=== PATIENT | female | born 1965 | race Caucasian/White ===

== ENCOUNTER 2016-08-15 12:21 | Day surgery (SDC) | payer OTHER ==
[~2016-08-15] VITALS: Ht 177.8 cm; Wt 93.9 kg
[~2016-08-15 12:21] MED LIST: 24 HOUR ALLER15.8 ML BOTH NARES; ESTRACE2 MG PO; LIPITOR80 MG PO; PHENTERMINE HCL30 MG PO; TYLENOL EXTRA500 MG PO; VITAMIN C500 M1 PO; ZYRTEC10 M2 PO
[2016-08-15] MEDS ORDERED: TYLENOL SINUS1 EA16 PO (12:53)
== END 2016-08-15 14:01 | disposition home or self-care (01) ==
LOC: PAIN 12:21 → SDC 15:00 → PAIN 15:00
DX: M47.26 Other spondylosis with radiculopathy, lumbar region (principal); M48.06 Spinal stenosis, lumbar region; E78.00 Pure hypercholesterolemia, unspecified; R73.03 Prediabetes; Z87.891 Personal history of nicotine dependence; E66.9 Obesity, unspecified; Z68.29 Body mass index [BMI] 29.0-29.9, adult
CPT/HCPCS: J1030; J2250; J3010; S0020

== ENCOUNTER 2016-08-22 13:36 | Day surgery (SDC) | payer OTHER ==
[~2016-08-22] VITALS: Ht 177.8 cm; Wt 93.9 kg
[~2016-08-22 13:36] MED LIST changes: +TYLENOL SINUS1 EA16 PO
== END 2016-08-22 14:52 | disposition home or self-care (01) ==
LOC: PAIN 13:36 → SDC 15:00
DX: M47.26 Other spondylosis with radiculopathy, lumbar region (principal); M48.06 Spinal stenosis, lumbar region; M25.552 Pain in left hip; M25.551 Pain in right hip; R73.03 Prediabetes; Z87.891 Personal history of nicotine dependence; E66.3 Overweight; Z68.29 Body mass index [BMI] 29.0-29.9, adult
CPT/HCPCS: J1030; J2250; J3010; S0020

== ENCOUNTER 2016-11-09 13:35 | Day surgery (SDC) | payer OTHER ==
[~2016-11-09] VITALS: Ht 177.8 cm; Wt 93.9 kg
[~2016-11-09 13:35] MED LIST changes: +ARTHRITIS PAIN650 M5 PO; -TYLENOL EXTRA500 MG PO; +ZETIA10 MG PO
== END 2016-11-09 14:52 | disposition home or self-care (01) ==
LOC: PAIN 13:35 → SDC 14:30 → PAIN 14:30
PROC: 015B3ZZ Destruction of Lumbar Nerve, Percutaneous Approach (ICD-10-PCS; principal; 2016-11-09)
DX: M47.27 Other spondylosis with radiculopathy, lumbosacral region (principal); G89.29 Other chronic pain; M25.551 Pain in right hip; M25.552 Pain in left hip; E78.4 Other hyperlipidemia; R73.03 Prediabetes; Z87.891 Personal history of nicotine dependence; E66.3 Overweight; Z68.27 Body mass index [BMI] 27.0-27.9, adult; M48.061 Spinal stenosis, lumbar region without neurogenic claudication
CPT/HCPCS: J1030; J2250; J3010; S0020

== ENCOUNTER 2016-11-16 13:05 | Day surgery (SDC) | payer OTHER ==
[~2016-11-16] VITALS: Ht 177.8 cm; Wt 93.9 kg
== END 2016-11-16 14:30 | disposition home or self-care (01) ==
LOC: PAIN 13:05 → SDC 14:15 → PAIN 14:15
DX: M47.26 Other spondylosis with radiculopathy, lumbar region (principal); M48.061 Spinal stenosis, lumbar region without neurogenic claudication; M54.5 Low back pain; G89.29 Other chronic pain; M25.551 Pain in right hip; E78.4 Other hyperlipidemia; R73.03 Prediabetes; E66.3 Overweight; Z68.29 Body mass index [BMI] 29.0-29.9, adult; Z87.891 Personal history of nicotine dependence; Z79.891 Long term (current) use of opiate analgesic
CPT/HCPCS: J1030; J2250; J3010; S0020

== ENCOUNTER 2017-08-14 07:12 | Day surgery (SDC) | payer OTHER ==
[~2017-08-14] VITALS: Ht 177.8 cm; Wt 88.0 kg
[~2017-08-14 07:12] MED LIST changes: +MULTIPLE VITAM1 EACH PO; +PHENTERMINE H37.5 MG PO; -PHENTERMINE HCL30 MG PO
== END 2017-08-14 09:05 | disposition home or self-care (01) ==
LOC: PAIN 07:12 → SDC 07:45 → PAIN 07:45
DX: M47.816 Spondylosis without myelopathy or radiculopathy, lumbar region (principal); M47.27 Other spondylosis with radiculopathy, lumbosacral region; M48.061 Spinal stenosis, lumbar region without neurogenic claudication; E78.4 Other hyperlipidemia; R73.03 Prediabetes; Z87.891 Personal history of nicotine dependence
CPT/HCPCS: J1030; J2250; S0020

== ENCOUNTER 2017-08-21 07:15 | Day surgery (SDC) | payer OTHER ==
[~2017-08-21] VITALS: Ht 177.8 cm; Wt 88.0 kg
== END 2017-08-21 08:50 | disposition home or self-care (01) ==
LOC: PAIN 07:15 → SDC 07:45 → PAIN 08:50
PROC: 3E0T3TZ Introduction of Destructive Agent into Peripheral Nerves and Plexi, Percutaneous Approach (ICD-10-PCS; principal; 2017-08-21)
PROC: BR161ZZ Fluoroscopy of Lumbar Facet Joint(s) using Low Osmolar Contrast (ICD-10-PCS; principal; 2017-08-21)
DX: M47.816 Spondylosis without myelopathy or radiculopathy, lumbar region (principal); M48.061 Spinal stenosis, lumbar region without neurogenic claudication; G89.29 Other chronic pain; M25.551 Pain in right hip; M47.27 Other spondylosis with radiculopathy, lumbosacral region; E78.5 Hyperlipidemia, unspecified; R73.03 Prediabetes; Z87.891 Personal history of nicotine dependence; Z88.8 Allergy status to other drugs, medicaments and biological substances; Z88.5 Allergy status to narcotic agent
CPT/HCPCS: J1030; J2250; S0020

== ENCOUNTER → 2017-09-07 | Outpatient (CLI) | payer OTHER | END | disposition home or self-care (01) | LOC: RAD 16:00 | DX: K76.0 Fatty (change of) liver, not elsewhere classified (principal); N28.9 Disorder of kidney and ureter, unspecified | CPT/HCPCS: 74177 ==